=== PATIENT | female | born 2005 | race Two or more races ===

== ENCOUNTER 2024-06-17 18:21 | Emergency (ER) | payer MEDICAID ==
[~2024-06-17] VITALS: Ht 157.5 cm; Wt 63.6 kg
[2024-06-17 18:26] VITALS: BP 150/84; PULSE 97; RESP 18; TEMP 98.2; O2SAT 100
[2024-06-17] MEDS: ONDANSETRON 4 MG TABLET PO ONE (22:54)
[2024-06-17 22:58] LABS: BASOPHILS % (AUTO) 0.6 % (0.0-2.0); EOSINOPHILS % (AUTO) 3.5 % (1.0-6.0); HEMATOCRIT 28.2 % (36-46); HEMOGLOBIN 8.5 g/dL (12.0-16.0); LYMPHOCYTES # (AUTO) 3.1 K/uL (1.0-4.8); LYMPHOCYTES % (AUTO) 42.1 % (22.0-44.0); MEAN CORPUSCULAR HGB CONC 30.3 G/dL (31.0-37.0); MEAN CORPUSCULAR VOLUME 59 fL (80-100); MONOCYTES # (AUTO) 0.4 K/uL (0.1-1.0); MONOCYTES % (AUTO) 5.7 % (2.0-9.0); NEUTROPHILS # (AUTO) 3.5 K/uL (1.8-7.7); NEUTROPHILS % (AUTO) 48.1 % (40.0-70.0); PLATELET COUNT (AUTO) 267 K/uL (150-450); RED BLOOD CELL COUNT(AUTO) 4.74 MIL/uL (4.00-5.20); RED CELL DISTRIBUTION WIDTH 19.4 % (11.5-14.5); WHITE BLOOD COUNT (AUTO) 7.3 K/uL (4.5-11.0)
[2024-06-17 23:20] LABS: ANION GAP 6 mmol/L (8-16); CALCIUM, TOTAL 8.5 mg/dL (8.8-10.5); CARBON DIOXIDE 28 mmol/L (22-29); CHLORIDE 105 mmol/L (98-107); CREATININE 0.65 mg/dL (0.60-1.30); GLOMERULAR FILTR. RATE CALC > 60 mL/min (>60); GLUCOSE,RANDOM 103 mg/dL (70-110); LIPASE 50 U/L (16-77); POTASSIUM 3.5 mmol/L (3.5-5.1); SODIUM SERUM 139 mmol/L (136-145); UREA NITROGEN, BLOOD 9 mg/dL (7-18)
[2024-06-17 23:27] LABS: PATHOLOGY REVIEW, DIFF YES; PLATELET MORPHOLOGY COMMENT LARGE PLTS PRESENT; RBC MORPHOLOGY COMMENT ABNORMAL RBC MORPH
[2024-06-17 23:47] LABS: HCG,QUANTITATIVE < 1 mIU/mL (0-6)
== END 2024-06-18 01:15 | disposition home or self-care (01) ==
LOC: EMS 18:21
DX: R10.13 Epigastric pain (principal); M94.0 Chondrocostal junction syndrome [Tietze]; R11.0 Nausea
CPT/HCPCS: 99285; 76705; 71045; 80048; 83690; 84702; 85025; 36415; 93005; Q0162